=== PATIENT | male | born 1935 | race Caucasian/White ===

== ENCOUNTER → 2016-05-01 | Day surgery (SDC) | payer MEDICARE, OTHER ==
[2016-04-25 14:29] VITALS: BMI 23.8
--- NOTE | 2016-04-30 10:12 | SC.ANESEVA ---
Anesthesia Eval & Plan ([facility]) - Providers Surgeon:: Tracey Kapadia - Medications/Allergies Home Medications: Home Medication List Carvedilol [Coreg] 3.125 mg PO BID 04/25/16 [History] Cyanocobalamin (Vitamin B-12) [Vitamin B-12 (cyanocobalamin)] 1,500 mcg PO DAILY 04/25/16 [History] Lisinopril [Prinivil] 10 mg PO DAILY 04/25/16 [History] Simvastatin [Zocor] 40 mg PO HS 04/25/16 [History] Warfarin Sodium 5 mg PO DAILY 04/25/16 [History] Warfarin Sodium [Coumadin] 4 mg PO DIR 04/25/16 [History] Current Medication List: Reviewed - Focused Physical Exam NPO since: Since after Midnight Mallampati: Class I Thyromental Distance: Greater than 3 Neck: Limited Range of Motion Dental: Normal - no significant findings Cardiovascular/Chest: Normal (RRR no mumurs or rubs.) Respiratory: Lungs clear. negative: Wheezing Any problems with anesthesia, including nausea and vomiting?: No Any relatives with a history of Malignant Hyperthermia?: No Prone to Motion Sickness: No Other: Diagnoses COMBINED FORMS OF AGE-RELATED CATARACT, RIGHT EYE (05/01/16) Home Medications Medication Instructions Recorded Last Taken Type Carvedilol [Coreg] 3.125 mg PO BID 04/25/16 Unknown History Cyanocobalamin (Vitamin B-12) 1,500 mcg PO DAILY 04/25/16 Unknown History [Vitamin B-12 (cyanocobalamin)] Lisinopril [Prinivil] 10 mg PO DAILY 04/25/16 Unknown History Simvastatin [Zocor] 40 mg PO HS 04/25/16 Unknown History Warfarin Sodium 5 mg PO DAILY 04/25/16 Unknown History Warfarin Sodium [Coumadin] 4 mg PO DIR 04/25/16 Unknown History Height and Weight Patient's height 6 ft 1 in Patient's weight 81.82 kg Weight (Calculated Kilograms) 81.820 BMI 23.8 - Anesthetic Plan Anesthesia Type: MAC ASA Class: 3 - Focused Review of Systems Cardiac History: Yes: Hx Hypertension, Hx Cardia Arrhythmia (bradycardia, irregular beat), Hx Abnormal Cholesterol/Hyperlipidemia Gastrointestinal: No: Hx Gastrointestinal Disorders Neurological/Musculoskeletal: No: Hx Neurological Disorders Smoking Status: Never smoker Surgical History: Yes: Knee (bilat TKR) Other Surgical History: pacemaker
[~2016-05-01] MED LIST: BSS 500 ml-Vancomycin 10 mg-Phenylephrine 1 mg Irrigation IR ONE; CHONDROITIN SULFATE 0.5 ML/PFS INTRAOC ONE; DEXAMETHASONE 4 MG/ML VIAL IV PRN; DIAZEPAM 5 MG TAB PO PRN; FENTANYL 100 MCG/2 ML VIAL ONE; Hyaluronate Sodium (Provisc) 5.5 mg/0.55 ml syringe INTRAOC ONE; LABETALOL 20 MG/4 ML SYRINGE IV PRN; MIDAZOLAM 2 MG/2 ML VIAL ONE; ONDANSETRON HCL 4 MG/2 ML VIAL IV PRN; PHENYLEPHRINE 2.5% OPHTH SOLN 2 ML BOT OP EYE ONE; SCOPOLAMINE TRANSDERMAL PATCH TOP ONE; TETRACAINE 0.5% 4 ML OPHTH SOLN OP EYE ONE; TETRACAINE 0.5% 4 ML OPHTH SOLN OP EYE PRN; TROPICAMIDE 1% OPHTH SOLN 2 ML BOTTLE OP EYE ONE; Vancomycin 10 MG, Phenylephrine 1,000 MCG in Balanced Salt Solution 500 ML IO ONE; hydrALAZINE 20 MG/ML VIAL IV PRN
[2016-05-01 09:09] VITALS: TEMP 97.1
--- NOTE | 2016-05-01 09:18 | HIMOPRPT ---
DATE OF PROCEDURE: 05/01/16 PREOPERATIVE DIAGNOSIS: Cataract right eye. POSTOPERATIVE DIAGNOSIS: Cataract right eye. PROCEDURE: Cataract extraction by phacoemulsification of the right eye SURGEON: Tracey Kapadia MD. ANESTHESIA: IV Sedation/Topical. COMPLICATIONS: None. PRE-OPERATIVE EVALUATION: The patient has been examined and deemed medically stable for cataract extraction with no apparent need for inpatient observation; outpatient setting is appropriate. Patient appears to be oriented to time, place and person. PROCEDURE IN DETAIL: The correct eye confirmed by patient, doctor, staff and paperwork. The operative eye was then marked by the doctor in the preoperative area. Eye drops were instilled into the operative eye to dilate the pupil. The patient was transported to the operating room and was placed in the supine position. A time out was performed before the beginning of the procedure. The operative eye was prepped and draped in the usual sterile fashion for ophthalmic surgery, taking care to isolate the lashes from the surgical field. Topical anesthetic drops were instilled into the operative eye. A lid speculum was placed. Betadine 5% was instilled in the operative eye for antiseptic. Microscope was brought into place for use throughout the case. The eye was inspected. A paracentesis incision was created with a side port knife. The temporal limbal corneal incision was performed with a jose armando blade. Viscoelastic was injected into the anterior chamber. Capsule forceps were used to create a capsulorhexis. Hydrodissection was performed with BSS. The nucleus was removed by phacoemulsification. Phaco time is noted below. The remaining cortical material was removed by I&A. The capsular bag was noted to be intact and distended with viscoelastic. The Intraocular lens was placed into the intact bag and centered without difficulty. The remaining viscoelastic was removed by I&A. Betadine 5% drops were placed to inspect wound and for antisepsis. Inspection revealed watertight wounds. The lid speculum was removed. Postoperative medications were instilled into the eye and a shield secured over the operative eye. IOL Type [id number] IOL Power 19.0 CDE 5.35 Discharge Summary: There were no complications and the patient was taken to the postoperative area in good condition. Postoperative instructions and outpatient follow up time were given.
[2016-05-01 09:22] VITALS: BP 106/75; PULSE 71
--- NOTE | 2016-05-01 09:23 | SC.ANESPOS ---
Post-Anesthesia Note LOC: Fully Awake Post-Anesthesia Assessment: Awake, Returned to Baseline, Hemodynamically Stable , Pain Control Adequate Phase I & II Recovery Complete: Yes Apparent Anesthesia Complication: No : N - Vital Signs Blood Pressure: 106/75 Pulse: 71 Resp Rate: 16 O2 Sat: 98 Temp: 97.1 F
== END ==
LOC: CPSC 07:33
PROVIDERS: ATTEND Ophthalmology
PROC: 08RJ3JZ Replacement of Right Lens with Synthetic Substitute, Percutaneous Approach (ICD-10-PCS; principal; 2016-05-01 09:15)
DX: H25.811 Combined forms of age-related cataract, right eye (principal); I10 Essential (primary) hypertension; E78.5 Hyperlipidemia, unspecified; M19.90 Unspecified osteoarthritis, unspecified site; Z79.899 Other long term (current) drug therapy; Z95.0 Presence of cardiac pacemaker
CPT/HCPCS: 66984; A9270; J2250; J3010; V2632; J3490